=== PATIENT | female | born 1970 | race Two or more races ===

== ENCOUNTER 2023-02-18 15:41 | Emergency (ER) | payer OTHER ==
[~2023-02-18] VITALS: Ht 160 cm; Wt 62.1 kg
[2023-02-18] MEDS ORDERED: TAMOXIFEN CITRA10 MG PO (16:04)
== END 2023-02-18 21:25 | disposition home or self-care (01) ==
LOC: ER 15:41
DX: B34.9 Viral infection, unspecified (principal); R53.1 Weakness; Z20.822 Contact with and (suspected) exposure to COVID-19